=== PATIENT | male | born 1995 | race Asian ===

== ENCOUNTER 2022-09-20 19:15 | Emergency (ER) | payer OTHER, BC ==
[~2022-09-20] VITALS: Ht 167.6 cm; Wt 77.1 kg
[2022-09-20 20:00] VITALS: BP 145/90
--- NOTE | 2022-09-20 20:03 | NUR ---
TO LOBBY A/W BED AMBULATORY
[2022-09-20] MEDS ORDERED: ONDA-188 SL (20:32)
[2022-09-20] MEDS ORDERED: NAPR-54 PO (20:32)
--- NOTE | 2022-09-20 20:36 | NUR ---
Dr. Miller examining patient.
[2022-09-20 20:41] VITALS: BP 145/90
--- NOTE | 2022-09-20 20:41 | NUR ---
Patient discharged with v/s stable. Written and verbal after care instructions given and explained. Patient alert, oriented and verbalized understanding of instructions. Ambulatory with steady gait. All questions addressed prior to discharge. ID band removed. Patient advised to follow up with PMD. Rx of Naproxen and Zofran given. Patient educated on indication of medication including possible reaction and side effects. Opportunity to ask questions provided and answered.
== END 2022-09-20 20:41 | disposition home or self-care (01) ==
LOC: MED 19:15
DX: S09.90XA Unspecified injury of head, initial encounter (principal); F07.81 Postconcussional syndrome; Z79.899 Other long term (current) drug therapy; V49.88XA Car occupant (driver) (passenger) injured in other specified transport accidents, initial encounter; Y93.89 Activity, other specified; Y92.89 Other specified places as the place of occurrence of the external cause; Y99.8 Other external cause status
CPT/HCPCS: 99283